=== PATIENT | female | born 1975 | race Caucasian/White ===

== ENCOUNTER 2017-11-10 19:56 | Emergency (ER) | payer OTHER ==
[2017-11-10] MEDS: HYDROCODONE/APAP (5/325) TAB PO (21:46)
[2017-11-10] MEDS: ONDANSETRON (ODT) 4 MG TAB ODT (21:46)
[2017-11-10] MEDS: DICYCLOMINE 20 MG INJ IM (21:48)
== END 2017-11-10 21:55 | disposition home or self-care (01) ==
LOC: FTE 19:56
DX: A08.4 Viral intestinal infection, unspecified (principal)
CPT/HCPCS: 96372; 99284-25

== ENCOUNTER 2018-03-25 20:33 | Emergency (ER) | payer OTHER | END 2018-03-25 22:22 | disposition home or self-care (01) | LOC: FTE 20:33 | DX: S10.96XA Insect bite of unspecified part of neck, initial encounter (principal); R40.2412 Glasgow coma scale score 13-15, at arrival to emergency department; W57.XXXA Bitten or stung by nonvenomous insect and other nonvenomous arthropods, initial encounter; Y92.9 Unspecified place or not applicable | CPT/HCPCS: 99283; Z7502 ==

== ENCOUNTER 2018-07-22 22:12 | Emergency (ER) | payer OTHER | END 2018-07-22 23:45 | disposition home or self-care (01) | LOC: FTE 22:12 | DX: M79.671 Pain in right foot (principal); M79.672 Pain in left foot | CPT/HCPCS: 99282; Z7502 ==

== ENCOUNTER 2019-03-27 22:07 | Emergency (ER) | payer OTHER ==
[2019-03-28] MEDS: DEXAMETHASONE 10 MG/ML 1 ML INJ IM (00:26)
[2019-03-28] MEDS: IBUPROFEN 600 MG TAB PO (00:27)
== END 2019-03-28 02:53 | disposition home or self-care (01) ==
LOC: FTE 22:07
DX: G60.9 Hereditary and idiopathic neuropathy, unspecified (principal)
CPT/HCPCS: 76536; 82962; 96372; 99285-25